=== PATIENT | female | born 1965 | race Caucasian/White ===

== ENCOUNTER 2017-10-28 11:06 | Emergency (ER) | payer OTHER ==
[2017-10-28] MEDS: KETOROLAC 30 MG INJ IM (13:02)
[2017-10-28] MEDS: ONDANSETRON (ODT) 4 MG TAB ODT (14:35)
[2017-10-28] MEDS: HYDROCODONE/APAP (10/325) TAB PO (14:36)
== END 2017-10-28 16:25 | disposition home or self-care (01) ==
LOC: FTE 11:06
DX: M54.6 Pain in thoracic spine (principal); F17.210 Nicotine dependence, cigarettes, uncomplicated
CPT/HCPCS: 71045; 72125; 96372; 99285-25